=== PATIENT | male | born 1995 | race Caucasian/White ===

== ENCOUNTER 2019-03-17 04:45 | Inpatient (IN) | payer OTHER ==
[2019-03-17] MEDS ORDERED: MORPHINE SULFATE 4 MG/ML SYRINGE IV STA (04:54)
[2019-03-17 05:22] LABS: Basophils % (A) 0 %; Eosinophils # (A) 0.3 k/uL (0-0.7); Eosinophils % (A) 3 %; HCT 46.1 % (39.0-53.0); HGB 16.3 gm/dL (13.0-17.5); Lymphocytes # (A) 3.6 k/uL (1.0-4.8); Lymphocytes % (A) 37 %; MCH 31.3 pg (25.0-35.0); MCHC 35.4 g/dL (31.0-37.0); MCV 88.5 fL (80.0-100.0); Mean Platelet Volume 6.5; Monocytes # (A) 0.5 k/uL (0-1.0); Monocytes % (A) 5 %; Neutrophils % (A) 51 %; Platelet Count 275 k/uL (150-450); RBC 5.21 m/uL (4.30-5.90); RDW 12.4 % (11.5-15.5); WBC 9.7 k/uL (3.8-10.6)
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
[2019-03-17 05:28] LABS: Partial Thromboplastin Time 24.8 sec (22.0-30.0)
[2019-03-17 05:34] LABS: ALT 60 U/L (21-72); AST 83 U/L (17-59); African American GFR (CKD) >90 (>60 ml/min/1.73 sqM); Albumin 4.8 g/dL (3.5-5.0); Alkaline Phosphatase 68 U/L (38-126); Anion Gap 14 mmol/L; Blood Urea Nitrogen 11 mg/dL (9-20); Calcium 9.7 mg/dL (8.4-10.2); Carbon Dioxide 21 mmol/L (22-30); Chloride 106 mmol/L (98-107); Glucose 136 mg/dL (74-99); Sodium 141 mmol/L (137-145); Total Bilirubin 0.4 mg/dL (0.2-1.3); Total Protein 7.8 g/dL (6.3-8.2)
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
[2019-03-17 05:37] LABS: Alcohol 173 mg/dL
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
[2019-03-17] MEDS ORDERED: ONDANSETRON 4 MG/2 ML VIAL IVP PRN (06:12)
[2019-03-17] MEDS ORDERED: NALOXONE 0.4 MG/ML 1 ML VIAL IV PRN (06:12)
[2019-03-17] MEDS ORDERED: MORPHINE SULFATE 4 MG/ML SYRINGE IV PRN (06:12)
[2019-03-17] MEDS ORDERED: ACETAMINOPHEN TAB 325 MG TAB PO PRN (06:12)
[2019-03-17] MEDS ORDERED: HYDROcodone/APAP 5-325MG 1 EACH TAB PO PRN (06:12)
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
[2019-03-17 07:06] LABS: Appearance,Urine Clear (Clear); Bilirubin,Urine Negative (Negative); Blood,Urine Small (Negative); Color,Urine Light Yellow; Glucose,Urine (UA) Negative (Negative); Ketones,Urine Negative (Negative); Leukocyte Esterase,Urine Negative (Negative); Nitrite,Urine Negative (Negative); Protein,Urine Negative (Negative); Specific Gravity,Urine 1.017 (1.001-1.035); Urobilinogen,Urine <2.0 mg/dL (<2.0); WBC,Urine 1 /hpf (0-5)
[2019-03-17 07:15] LABS: Amphetamine Screen,Urine Not Detected (NotDetected); Barbiturate Screen,Urine Not Detected (NotDetected); Benzodiazepines Screen,Urine Not Detected (NotDetected); Cocaine Screen,Urine Not Detected (NotDetected); Methadone Screen, Urine Not Detected (NotDetected); Opiate Screen,Urine Detected (NotDetected); Oxycodone Screen, Urine Not Detected (NotDetected); Phencyclidine Screen,Urine Not Detected (NotDetected); Tricyclic Antidepressant,Urine Not Detected (NotDetected); Urn Cannabinoid Scrn Not Detected (NotDetected)
[2019-03-17] MEDS: SODIUM CHLORIDE 0.9% 1,000 ML IV SCH (07:22)
--- NOTE | 2019-03-17 07:45 | XR ---
EXAMINATION TYPE: XR hand complete RT , 3 VIEWS DATE OF EXAM ORDERED: 03/17/2019 HISTORY: pain. COMPARISON: None. FINDINGS: No fracture, dislocation or other acute osseous lesion is seen. IMPRESSION: NO ACUTE OSSEOUS LESION.
[2019-03-17] MEDS: FAMOTIDINE 20 MG TAB PO SCH ×2 (10:21→19:30)
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
[2019-03-17] MEDS: HYDROmorphone 1 MG/ML 1 ML SYRINGE IVP PRN ×2 (12:40→19:31)
[2019-03-17] MEDS: KETOROLAC 30 MG/ML 1 ML VIAL IVP PRN ×2 (14:17→23:04)
[2019-03-18] MEDS: HYDROmorphone 1 MG/ML 1 ML SYRINGE IVP PRN ×3 (06:19→20:47)
[2019-03-18] MEDS: SODIUM CHLORIDE 0.9% 1,000 ML IV SCH (06:20)
[2019-03-18] MEDS: KETOROLAC 30 MG/ML 1 ML VIAL IVP PRN ×2 (07:59→17:53)
[2019-03-18] MEDS: FAMOTIDINE 20 MG TAB PO SCH ×2 (07:59→20:47)
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
--- NOTE | 2019-03-18 10:16 | XR ---
EXAMINATION TYPE: XR ankle complete LT DATE OF EXAM: 03/18/2019 COMPARISON: NONE HISTORY: Pain FINDINGS: Three views of the ankle demonstrate the ankle mortise to be intact and symmetric. There is an avulsi on fracture of the medial malleolus adjacent edema. On the oblique view there is a suggestion of the second nondisplaced linear lucency or fracture through the distal diaphysis of the tibia extending to the articular surface. This is not definitively seen on other views. IMPRESSION: 1. Avulsion fracture medial malleolus. Questions a second nondisplaced fracture extending to the art icular surface, obliquely oriented, involving the distal tibia
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
--- NOTE | 2019-03-18 12:01 | XR ---
EXAMINATION TYPE: XR tibia fibula LT DATE OF EXAM: 03/18/2019 COMPARISON: NONE HISTORY: Pain TECHNIQUE: Two views are submitted. FINDINGS: There is an old avulsion fracture of the medial malleolus. Remaining osseous structures intact. Soft tissue edema adjacent to the medial malleolus. IMPRESSION: 1. Avulsion fracture medial malleolus.
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
[2019-03-19] MEDS: HYDROmorphone 1 MG/ML 1 ML SYRINGE IVP PRN ×5 (02:01→21:49)
[2019-03-19] MEDS: HYDROcodone/APAP 7.5-325MG 1 EACH TAB PO PRN (03:25)
[2019-03-19] MEDS: SODIUM CHLORIDE 0.9% 1,000 ML IV SCH (05:10)
[2019-03-19] MEDS: FAMOTIDINE 20 MG TAB PO SCH ×2 (08:34→21:49)
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
[2019-03-20] MEDS: HYDROmorphone 1 MG/ML 1 ML SYRINGE IVP PRN (02:14)
[2019-03-20] MEDS: SODIUM CHLORIDE 0.9% 1,000 ML IV SCH ×2 (04:38→23:16)
[2019-03-20] MEDS: HYDROcodone/APAP 7.5-325MG 1 EACH TAB PO PRN ×4 (07:58→21:55)
[2019-03-20] MEDS: FAMOTIDINE 20 MG TAB PO SCH ×2 (07:58→21:54)
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
[2019-03-20] MEDS ORDERED: ALBUTEROL NEBULIZED 2.5 MG/3 ML INHALATION STA (17:27)
[2019-03-21] MEDS: HYDROcodone/APAP 7.5-325MG 1 EACH TAB PO PRN ×3 (04:32→14:02)
[2019-03-21] MEDS: ALBUTEROL NEBULIZED 2.5 MG/3 ML INHALATION PRN ×2 (05:31→10:40)
[2019-03-21] MEDS: FAMOTIDINE 20 MG TAB PO SCH (08:23)
[2019-03-21 08:24] VITALS: RESP 16
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
[2019-03-21 08:25] VITALS: BP 138/74; TEMP 97.7
[2019-03-21 10:43] VITALS: PULSE 72
== END 2019-03-21 14:31 | disposition home or self-care (01) | DRG 552 ==
LOC: EC 04:45 → 4SSUR 06:15
PROVIDERS: ADMIT Orthopaedic Surgery Orthopaedic Surgery of the Spine; ATTEND Orthopaedic Surgery Orthopaedic Surgery of the Spine
DX: S32.041A Stable burst fracture of fourth lumbar vertebra, initial encounter for closed fracture (principal); F10.129 Alcohol abuse with intoxication, unspecified; Y90.6 Blood alcohol level of 120-199 mg/100 ml; F17.200 Nicotine dependence, unspecified, uncomplicated; J45.909 Unspecified asthma, uncomplicated; M53.3 Sacrococcygeal disorders, not elsewhere classified; R04.0 Epistaxis; S60.519A Abrasion of unspecified hand, initial encounter; S66.911A Strain of unspecified muscle, fascia and tendon at wrist and hand level, right hand, initial encounter; S82.52XA Displaced fracture of medial malleolus of left tibia, initial encounter for closed fracture; V43.52XA Car driver injured in collision with other type car in traffic accident, initial encounter; Y92.410 Unspecified street and highway as the place of occurrence of the external cause
CPT/HCPCS: 36415; 70450; 71045; 71260; 72125; 72148; 72170; 72195; 74177; 80053; 80306; 80320; 81001; 83605; 84484; 85025; 85610; 85730; 86850; 86900; 86901; 93005; 94640; 96374; 96376; 99285

== ENCOUNTER 2021-03-05 14:39 | Emergency (ER) | payer OTHER ==
[2021-03-05] MEDS ORDERED: HYDROcodone/APAP 5-325MG 1 EACH TAB PO STA (15:38)
--- NOTE | 2021-03-05 15:42 | ED ---
General Adult HPI - General Chief complaint: Abdominal Pain Stated complaint: IHS-Abd injury Time Seen by Provider: 03/05/21 15:32 Source: patient, RN notes reviewed, old records reviewed Mode of arrival: ambulatory Limitations: no limitations - History of Present Illness Initial comments: Well-appearing well-nourished 25-year-old male, ambulatory with steady gait, presents to the emergency room with complaints of bilateral groin pain and left testicle pain. Patient states started at 4 AM when he was attempting to pull a ladder he felt a sharp pain. He states that the pain was instant is 8 out of 10. He denies any abdominal pain nausea or vomiting. Denies any testicular swelling. He has not had previous injuries no surgical history in the past. He is a pack-a-day smoker. He also states that he has asthma and uses albuterol as needed. -: hour(s) (11) Location: genitals (Testicle and bilateral groin), left Radiation: non-radiation Severity scale (1-10): 8 Quality: sharp Consistency: constant Improves with: rest Worsens with: movement Associated Symptoms: denies other symptoms Treatments Prior to Arrival: none - Related Data Previous Rx's Medication Instructions Recorded Ibuprofen [Motrin] 600 mg PO Q8HR PRN #30 tab 03/05/21 Allergies Allergy/AdvReac Type Severity Reaction Status Date / Time No Known Allergies Allergy Verified 03/05/21 16:58 Review of Systems ROS Statement: Those systems with pertinent positive or pertinent negative responses have been documented in the HPI. ROS Other: All systems not noted in ROS Statement are negative. Past Medical History Past Medical History: Asthma History of Any Multi-Drug Resistant Organisms: None Reported Past Psychological History: No Psychological Hx Reported Smoking Status: Current every day smoker Past Alcohol Use History: Occasional Past Drug Use History: None Reported - Past Family History Father Family Medical History: Thyroid Disorder General Exam Limitations: no limitations General appearance: alert, in no apparent distress Head exam: Present: atraumatic, normocephalic, normal inspection Eye exam: Present: normal appearance, PERRL, EOMI. Absent: scleral icterus, conjunctival injection, periorbital swelling ENT exam: Present: normal exam, normal oropharynx, mucous membranes moist Neck exam: Present: normal inspection, full ROM Respiratory exam: Present: normal lung sounds bilaterally. Absent: respiratory distress, wheezes, rales, rhonchi, stridor Cardiovascular Exam: Present: regular rate, normal rhythm, normal heart sounds. Absent: systolic murmur, diastolic murmur, rubs, gallop, clicks GI/Abdominal exam: Present: soft, tenderness (Bilateral groin pain), normal bowel sounds. Absent: distended, guarding, rebound, rigid, mass, hernia Extremities exam: Present: full ROM. Absent: tenderness Neurological exam: Present: alert, oriented X3, normal gait Psychiatric exam: Present: normal affect, normal mood Skin exam: Present: warm, dry, intact, normal color. Absent: rash Course Vital Signs 03/05/21 03/05/21 14:46 18:06 Temperature 98.5 F 98.7 F Pulse Rate 86 81 Respiratory 18 20 Rate Blood Pressure 123/74 126/80 O2 Sat by Pulse 99 98 Oximetry Medical Decision Making - Medical Decision Making Urinalysis is negative for infection. Scrotal ultrasound shows no evidence of testicular torsion. There is positive left scrotal varicocele. No evidence of epididymitis. Patient will be prescribed Motrin and directed no heavy lifting. This is likely a groin strain in addition to the left varicocele. He was given prescription for Motrin and a referral to urology. Directed to return if any new or worsening symptoms or increased pain. Case discussed with Dr. Buitrago. - Lab Data Lab Results 03/05/21 Range/Units 16:37 Urine Color Light Yellow Urine Appearance Clear (Clear) Urine pH 7.5 (5.0-8.0) Ur Specific [place] 1.006 (1.001-1.035) Urine Protein Negative (Negative) Urine Glucose (UA) Negative (Negative) Urine Ketones Negative (Negative) Urine Blood Negative (Negative) Urine Nitrite Negative (Negative) Urine Bilirubin Negative (Negative) Urine Urobilinogen <2.0 (<2.0) mg/dL Ur Leukocyte Esterase Negative (Negative) Disposition Clinical Impression: Left varicocele, Groin strain Disposition: HOME SELF-CARE Condition: Good Instructions (If sedation given, give patient instructions): Varicocele (ED), Groin Strain (ED) Additional Instructions: Take Motrin as prescribed. No heavy lifting until seen by primary care doctor. Return to the emergency room with any new or worsening symptoms including increased pain. Prescriptions: Ibuprofen [Motrin] 600 mg PO Q8HR PRN #30 tab PRN Reason: Pain Is patient prescribed a controlled substance at d/c from ED?: No Referrals: Rosalva Alexander DO [Primary Care Provider] - 1-2 days Piotr Morgan MD [STAFF PHYSICIAN] - 1-2 days Time of Disposition: 17:21
--- NOTE | 2021-03-05 16:28 | US ---
EXAMINATION TYPE: US scrotum with doppler. DATE OF EXAM: 03/05/2021 COMPARISON: NONE CLINICAL HISTORY: 25-year-old male with bilateral groin pain, left testicle pain. Pt states lifting s omething heavy at 4:00am and feeling pull. No swelling. Bilateral pain. TECHNIQUE: Grayscale and color Doppler Duplex imaging performed of the scrotum. FINDINGS: EXAM MEASUREMENTS: TESTICLES: Right Testicle: 5.2 x 3.6 x 2.6 cm Left Testicle: 4.7 x 3.5 x 2.4 cm Testicles show normal homogeneous appearance without hyperemia. Doppler performed to assess for test icular vascularity; good bilateral color flow and waveforms are seen. There is no evidence of testi cular torsion. EPIDIDYMIS HEAD: Right Epididymis: 1.0 x 1.2 x 0.8 cm Left Epididymis: 0.9 x 1.1 x 0.9 cm Presence of hydroceles: Trace on both sides Presence of varicoceles: Positive on the left. IMPRESSION: 1. Exam positive for left scrotal varicoceles. 2. No sonographic evidence for testicular torsion or epididymoorchitis.
[2021-03-05 17:05] LABS: Appearance,Urine Clear (Clear); Bilirubin,Urine Negative (Negative); Blood,Urine Negative (Negative); Color,Urine Light Yellow; Glucose,Urine (UA) Negative (Negative); Ketones,Urine Negative (Negative); Leukocyte Esterase,Urine Negative (Negative); Nitrite,Urine Negative (Negative); PH, Urine 7.5 (5.0-8.0); Protein,Urine Negative (Negative); Specific Gravity,Urine 1.006 (1.001-1.035); Urobilinogen,Urine <2.0 mg/dL (<2.0)
[2021-03-05 18:07] VITALS: BP 126/80; PULSE 81; RESP 20; TEMP 98.7
== END 2021-03-05 18:06 | disposition home or self-care (01) ==
LOC: EC 14:39
DX: I86.1 Scrotal varices (principal); J45.909 Unspecified asthma, uncomplicated; F17.200 Nicotine dependence, unspecified, uncomplicated
CPT/HCPCS: 76870; 81003; 93975; 99284

== ENCOUNTER → 2021-04-13 | Outpatient (CLI) | payer OTHER, BC ==
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
== END | disposition home or self-care (01) ==
LOC: RADCTMAIN 08:39
PROVIDERS: ATTEND Urology
DX: N40.0 Benign prostatic hyperplasia without lower urinary tract symptoms (principal); R10.9 Unspecified abdominal pain
CPT/HCPCS: 74176